=== PATIENT | male | born 1965 | race Caucasian/White ===

== ENCOUNTER 2017-05-08 09:45 | Inpatient (IN) | payer OTHER ==
[~2017-05-08] VITALS: Ht 177.8 cm; Wt 98.0 kg
[2017-05-26] MEDS ORDERED: FLAGYL500MG PO (07:09)
[2017-05-26] MEDS ORDERED: OXYC1TAB9 PO (07:10)
[2017-05-26] MEDS ORDERED: CHOLESTYRAMINE P4 GM PO (07:10)
[2017-05-26] MEDS ORDERED: Intestinex CAP PO (07:10)
== END 2017-05-26 10:21 | disposition home or self-care (01) | DRG 330 ==
LOC: SURH 05-15 07:24 → O/R 05-15 07:24 → SURH 05-15 09:45
PROVIDERS: Surgery
PROC: 0DTE4ZZ Resection of Large Intestine, Percutaneous Endoscopic Approach (ICD-10-PCS; principal; 2017-05-15 12:00)
PROC: 3E0336Z Introduction of Nutritional Substance into Peripheral Vein, Percutaneous Approach (ICD-10-PCS; 2017-05-19)
PROC: BW21Y0Z Computerized Tomography (CT Scan) of Abdomen and Pelvis using Other Contrast, Unenhanced and Enhanced (ICD-10-PCS; 2017-05-23)
DX: D12.0 Benign neoplasm of cecum (principal); K56.0 Paralytic ileus; K91.89 Other postprocedural complications and disorders of digestive system; E87.1 Hypo-osmolality and hyponatremia; N17.8 Other acute kidney failure; L03.113 Cellulitis of right upper limb; D12.2 Benign neoplasm of ascending colon; D12.4 Benign neoplasm of descending colon; D12.5 Benign neoplasm of sigmoid colon; D12.3 Benign neoplasm of transverse colon; R33.8 Other retention of urine; N99.0 Postprocedural (acute) (chronic) kidney failure; R19.7 Diarrhea, unspecified